=== PATIENT | female | born 1980 | race American Indian/Alaskan Native ===

== ENCOUNTER 2016-08-24 11:13 | Day surgery (SDC) | payer OTHER, BC ==
[2016-08-22 13:30] VITALS: BMI 31.0
[2016-08-24 12:44] VITALS: O2SAT 100
[2016-08-24] MEDS ORDERED: Propofol 10 mg/ml Inj (20 ML) ONE (13:25)
[2016-08-24] MEDS ORDERED: Bupivacaine HCl 0.25% PF (10 ml) Inj ONE ×2 (13:29→13:30)
[2016-08-24] MEDS ORDERED: ceFAZolin IV 2 gm in Dextrose 1 GM/50 ML BAG IVPB ONE (13:30)
[2016-08-24] MEDS ORDERED: Lactated Ringer's 1,000 ML IV ONE (13:30)
[2016-08-24] MEDS ORDERED: Midazolam 2 MG/2 ML VIAL ONE (13:32)
[2016-08-24] MEDS ORDERED: Rocuronium 10 mg/ml (10 ml) ONE (14:54)
[2016-08-24] MEDS ORDERED: Neostigmine Methylsulfate 3mg/3ml Syringe IV ONE (15:18)
--- NOTE | 2016-08-24 15:38 | PCM.SURG1 ---
Surgeon's Initial Post Op Note - Surgeon's Notes Surgeon: Crystal Petit MD Underground Repairer: Servando Hurst MD Type of Anesthesia: General Endo Pre-Operative Diagnosis: Left ovarian cyst, dermoid, multiparity desring permanent tubal sterilzation, pelvic pain Operative Findings: enlarged 10 week size uteurs, small subserosal myoma, normal falloptian tubes bilaterally, enlarged left ovary 8cm ecasing entire dermoid cyst, normal right ovary, good hemostasis. urine output 300cc. Dr Servando Hurst was certified surgical tech/first assistant as was present for entire case and essential in gaining entry, retraction, exposure, holding camera, removing specimens, closing all layers Post-Operative Diagnosis: same as above Operation Performed: Laparascopic left salpingooophrectomy, removal of dermoid ovarian cyst, right salpingectomy Specimen/Specimens Removed: left ovarian cyst with ovary, left and right fallopian tube Estimated Blood Loss: EBL {In ML}: 10 Blood Products Given: N/A Drains Used: No Drains Post-Op Condition: Good Date of Surgery/Procedure: 08/24/16 Time of Surgery/Procedure: 14:00
[2016-08-24] MEDS ORDERED: HYDROmorphone 0.5 mg/0.5 ml ISec IVP PRN (15:45)
[2016-08-24 17:31] VITALS: BP 112/72; PULSE 72; RESP 18; TEMP 97.2
--- NOTE | 2016-08-24 23:26 | OP ---
PROCEDURE DATE: 08/24/2016 SURGEON: Dr. Crystal Petit. ELECTROPHYSIOLOGY NURSE PRACTITIONER: Dr. Servando Hurst. TYPE OF ANESTHESIA: General endotracheal. PREOPERATIVE DIAGNOSIS: Left ovarian cyst, dermoid, multiparity, desiring permanent tubal sterilization, pelvic pain. OPERATIVE FINDINGS: Enlarged [id number] uterus, small subserosal myoma, normal fallopian tubes bilaterally, large left ovary 8 cm encasing entire dermoid cyst torsing over tube and round ligament , normal right ovary, good hemostasis. . URINE OUTPUT: [address] Servando Hurst was operating room surgical technician and was present for the entire case, essentially gaining entry, retraction, exposure, holding the camera, removing specimens, and closing all layers. POSTOPERATIVE DIAGNOSIS: Left ovarian cyst, dermoid multiparity, desiring permanent tubal sterilization pelvic pain. OPERATION PERFORMED: Ovarian detorsion, Laparoscopic left salpingo-oophorectomy , removal of dermoid ovarian cyst, right salpingectomy. SPECIMEN REMOVED: Left ovarian cyst with left ovary, left and right fallopian tubes. ESTIMATED BLOOD LOSS: 10 mL. BLOOD PRODUCTS: None. COMPLICATIONS: None. INDICATION: The patient is a 36-year-old para 2 complaining of pelvic pain, and upon ultrasound examination was found to have an enlarged ovarian cyst which was suspicious for dermoid cyst. An MRI was confirmatory. DESCRIPTION OF PROCEDURE: After informed consent was obtained, the patient was taken to the operating room, prepped and draped and placed in the dorsal lithotomy position with the legs supported using stirrups. A timeout confirmed correct patient and correct procedure. A Saldaña catheter was inserted into the urethra to drain the bladder. A Spears retractor was placed in the anterior, posterior fornix of vagina. The cervix was adequately visualized. A single tooth tenaculum was placed in the anterior lip of the cervix and the uterus was then sounded to 8 cm. Following this, a HUMI manipulator was inserted and the balloon was inflated with 7 mL of air. The uterine manipulator was found to be in place. The single tooth tenaculum was removed. There was good hemostasis noted and all retractors were removed. The surgeon regloved and attention was then turned to the abdomen, and 0.5 Marcaine was administered infraumbilically. A 1 cm skin incision was made in the infraumbilical the abdominal wall with towel clips, Veress needle was inserted without difficulty and the abdomen was insufflated. This was done using appropriate flow and volume of CO2 to a pressure of 15 mmHg. Following this, a 5 mm Step trocar was then placed without difficulty under direct visualization with the laparoscope. The above findings were then seen. A 12 mm port was then placed approximately 4 cm from the right anterior, superior iliac spine under direct visualization. Two additional 5 mm ports were then placed in the right upper quadrant and in the left lower quadrant under direct visualization after administering ___marcaine local anesthetic.__. upon pelvic inspection large left ovary detorsed followed by Using a grasper, the mass was tented up at the inferior pelvic ligament and LigaSure device was placed across and several bites were taken with good visualization while ligating. This ovarian cyst had appeared to take up a good portion of the ovary and upon trying to dissect the ovary, hemostasis was attempted. The left ovary was removed in its entirety due to hemostasis and was placed in the EndoCatch bag and removed through the right lower quadrant incision. The right fallopian tube and the left fallopian tube were then, in similar fashion, grasped, elevated with a grasper and removed using the LigaSure device. There was good hemostasis noted at all sites. All specimens were removed through the 12 mm port. The specimen was removed intact in the EndoCatch bag through the site. Prior to desufflation of the abdomen, the site where the adnexa was removed and the salpingectomy appeared to be hemostatic. All port sites were hemostatic as well. The right lower quadrant fascia of the 12 mm incision was repaired using the Endo Close device using 0 Vicryl The fascia was reapproximated and closed. All instruments were removed. The skin was then reapproximated and closed with 3-0 Monocryl in a running subcuticular fashion. The abdomen was then prepped and cleaned and Steri- Strips and an abdominal dressing were placed over the incisions. At the end of the procedure, all needle, sponge, and instrument counts were noted to be correct x 2. The patient tolerated the procedure well and was transferred to the recovery room in stable condition. Crystal Petit MD cc: [id number] TT: 08/24/2016 23:26:03 juan miguel GIBBS
== END 2016-08-24 18:21 | disposition home or self-care (01) ==
LOC: C.SDS 11:13
PROVIDERS: ATTEND Obstetrics & Gynecology
DX: D27.1 Benign neoplasm of left ovary (principal); R10.2 Pelvic and perineal pain
CPT/HCPCS: 36415; 58661; 88104; 88302; 88305; C1713; J0690; J1885; J2001; J2250; J2704; J2710; J3010; J7120